=== PATIENT | female | born 1995 | race Caucasian/White ===

== ENCOUNTER 2016-10-17 16:38 | Emergency (ER) | payer OTHER ==
[~2016-10-17] VITALS: Ht 177.8 cm; Wt 81.6 kg
[~2016-10-17 16:38] MED LIST: MONT5TAB12 PO
[2016-10-17 16:40] VITALS: BP 108/78; PULSE 108; RESP 20; TEMP 97.8; O2SAT 99
[2016-10-17 18:09] VITALS: BP 127/78; PULSE 78; RESP 18; TEMP 97.8; O2SAT 99
== END 2016-10-17 18:09 | disposition home or self-care (01) ==
LOC: SED 16:38
DX: S00.83XA Contusion of other part of head, initial encounter (principal); Z88.7 Allergy status to serum and vaccine; W22.01XA Walked into wall, initial encounter; Y93.39 Activity, other involving climbing, rappelling and jumping off; Y92.89 Other specified places as the place of occurrence of the external cause; Y99.8 Other external cause status
CPT/HCPCS: 70450-TC; 99284